=== PATIENT | female | born 1965 | race Caucasian/White ===

== ENCOUNTER 2017-01-20 08:07 | Emergency (ER) | payer OTHER ==
[2017-01-20 08:17] VITALS: BP 111/77
--- NOTE | 2017-01-20 08:28 | ED ---
Laceration/Wound HPI - History of Current Complaint Stated Complaint: FINGER LACERATION Time Seen by Provider: 01/20/17 08:24 Hx Obtained From: Patient Mechanism of Injury: Sharp/Blunt Trauma - cut R thumb on food mobile driver blade while washing dishes Onset/Duration: Sudden Onset - 45min ago. is having trouble making it stop bleeding Aggravating: Movement Alleviating: Compression Onset Severity: Moderate Current Severity: Moderate Pain Scale Used: 0-10 Numeric - 2 Associated Signs & Symptoms: Negative - Allergy/Home Medications Allergies/Adverse Reactions: Allergies Allergy/AdvReac Type Severity Reaction Status Date / Time Aspirin AdvReac Severe GI Upset Verified 01/20/17 08:17 Codeine AdvReac Severe GI Upset Verified 01/20/17 08:17 Erythromycin AdvReac Severe GI Upset Verified 01/20/17 08:17 Home Medications: Home Medications Atorvastatin* [Lipitor*] 20 mg PO 1700 01/20/17 [History Confirmed 01/20/17] Citalopram TAB* [CeleXA TAB*] 20 mg PO DAILY 01/20/17 [History Confirmed ] PMH/Surg Hx/FS Hx/Imm Hx Previously Healthy: Yes Endocrine/Hematology History: Denies: Hx Diabetes, Hx Thyroid Disease Cardiovascular History: Denies: Hx Hypertension Respiratory History: Denies: Hx Asthma, Hx Chronic Obstructive Pulmonary Disease (COPD) GI History: Denies: Hx Ulcer Psychiatric History: Denies: Hx Anxiety - Surgical History Surgery Procedure, Year, and Place: CHOLECYSTECTOMY, CARPAL TUNNEL, TUBAL LIGATION Infectious Disease History: No Infectious Disease History: Denies: Hx Hepatitis, Hx Human Immunodeficiency Virus (HIV), History Other Infectious Disease, Traveled Outside the [place] in Last 30 Days - Social History Alcohol Use: Rare Substance Use Type: Reports: None Smoking Status (MU): Never Smoked Tobacco Review of Systems Constitutional: Negative Cardiovascular: Negative Respiratory: Negative Musculoskeletal: Negative - no loss ROM Skin: Other - superficial cresent shaped lac R thumb Neurological: Negative Psychological: Normal All Other Systems Reviewed And Are Negative: Yes Physical Exam Triage Information Reviewed: Yes Vital Signs On Initial Exam: Initial Vitals Temp Pulse Resp BP Pulse Ox 98.3 F 75 16 111/77 97 01/20/17 08:12 01/20/17 08:12 01/20/17 08:12 01/20/17 08:12 01/20/17 08:12 Vital Signs Reviewed: Yes Appearance: Positive: Well-Appearing, No Pain Distress, Well-Nourished Skin: Positive: Warm, Skin Color Reflects Adequate Perfusion, Dry, Other - 7mm cresent shaped lac distal R thumb, no active bleeding Respiratory/Lung Sounds: Positive: Clear to Auscultation Cardiovascular: Positive: Normal Musculoskeletal: Positive: Normal, Strength/ROM Intact Neurological: Positive: Sensory/Motor Intact Psychiatric: Positive: Normal Procedures - Laceration/Wound Repair 1 Location: upper extremity - R thumb Description: Irregular - cresent shaped flap lac Length, Depth and Shape: 7mm long, 1mm wide, 1mm deep Betadine Prep?: No Irrigated w/ Saline (ccs): 10 Laceration/Wound Explored: clean Closure: Skin Adhesive, SteriStrips Sterile Dressing Applied?: Yes Diagnostics - Vital Signs Vital Signs Temp Pulse Resp BP Pulse Ox 01/20/17 08:12 98.3 F 75 16 111/77 97 - Laboratory Lab Statement: Any lab studies that have been ordered have been reviewed, and results considered in the medical decision making process. Laceration Repair Course/Dx - Differential Dx Differental Diagnoses: Abrasion, Avulsion, Laceration - Clinical Impression Provider Diagnoses: Laceration Discharge - Discharge Plan Condition: Good Disposition: HOME Patient Education Materials: Laceration Without Closure (ED), Skin Adhesive Care (ED) Referrals: Nidia Aragon MD [Primary Care Provider] - 2 Days (if needed for signs infection ) Additional Instructions: keep wound clean and dry. return for signs infection
== END 2017-01-20 09:08 | disposition home or self-care (01) ==
LOC: UCEAST 08:07
DX: S61.011A Laceration without foreign body of right thumb without damage to nail, initial encounter (principal); W27.8XXA Contact with other nonpowered hand tool, initial encounter; Y93.G1 Activity, food preparation and clean up; Y92.9 Unspecified place or not applicable; Z88.6 Allergy status to analgesic agent; Z88.1 Allergy status to other antibiotic agents; Z88.5 Allergy status to narcotic agent; Z90.49 Acquired absence of other specified parts of digestive tract
CPT/HCPCS: 12001; 99211; G0463

== ENCOUNTER 2019-01-28 07:21 | Day surgery (SDC) | payer OTHER ==
--- NOTE | 2019-01-24 08:56 | HP ---
HISTORY AND PHYSICAL: DATE OF SURGERY/ADMISSION: 01/28/19 - [facility] DATE OF OFFICE VISIT/ENCOUNTER: 12/29/18 ATTENDING SURGEON: Patsy Silva MD * (DICTATED BY ROBBIN WISEMAN) PROCEDURE: Left wrist carpal tunnel release. HISTORY OF PRESENT ILLNESS: This is a 53-year-old female who has had symptoms of carpal tunnel syndrome on the left, ongoing for several years. She has had physical therapy in the past and tried wrist bracing; however, neither of those alleviated her symptoms. She had a carpal tunnel release performed on the right and has done quite well for that. She now has consented to proceed with a left wrist carpal tunnel release. PAST MEDICAL HISTORY: 1. Seasonal allergies. 2. Depression/anxiety. 3. High cholesterol. 4. GERD. PAST SURGICAL HISTORY: 1. Tubal ligation. 2. Cholecystectomy. 3. Right carpal tunnel release. 4. [place] teeth extraction. CURRENT MEDICATIONS: 1. Celexa 20 mg daily. 2. Esomeprazole magnesium 20 mg daily. 3. Lipitor 20 mg daily. 4. Melatonin 3 mg two tabs daily. 5. Vitamin B12 TR 1000 mcg daily. 6. Xyzal Allergy 24 Hour 5 mg daily. ALLERGIES: No known drug allergies. FAMILY MEDICAL HISTORY: Heart disease, hypertension, cancer. 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 She denies tobacco use and recreational drug use. She drinks alcohol on rare occasion. REVIEW OF SYSTEMS: Negative for general, cephalic, cardiovascular, respiratory , GI, , other musculoskeletal, integumentary, endocrine, neurologic, and hematologic symptoms. Infectious Disease: Negative for MRSA, hepatitis C, HIV. PHYSICAL EXAMINATION GENERAL: Well-developed, well-nourished 53-year-old female, in no acute distress. VITAL SIGNS: Height 4 feet 8 inches, weight 144 pounds, pulse rate 68, blood pressure 114/68. HEENT: Normocephalic and atraumatic. Pupils are equal, round, and reactive to light and accommodation. Extraocular movements are intact. NECK: Supple. No palpable lymph nodes. Throat is clear. PULMONARY: Lungs are clear to auscultation bilaterally. No wheezes, rales, or rhonchi. CARDIOVASCULAR: Regular rate and rhythm. S1 and S2. No murmurs, rubs, or gallops. No edema. ABDOMEN: Positive bowel sounds. Soft and nontender. NEUROLOGIC: Alert and oriented x3. Cranial nerves II through XII are intact. Sensation is intact to light touch. MUSCULOSKELETAL: On exam of her left hand there is no thenar wasting, but she does have some weakness with thumb abduction. She has a positive Newton's test and a Tinel sign at carpal tunnel. She can make a full fist and has good extension of the fingers. Sensation is intact to light touch throughout the hands. IMPRESSION: Left carpal tunnel syndrome. PLAN/RECOMMENDATIONS: The patient is scheduled to undergo a left wrist carpal tunnel release with Dr. Silva on 01/28/19. She will return to the office 10 days postop for followup and suture removal. Prescription for Cummings was e- scribed to the patient's pharmacy for postoperative pain management. ROBBIN WISEMAN [id number]/[facility] #: [id number] MTDLidia
[~2019-01-28 07:21] MED LIST: Buffered Lidocaine 1% SYRIN* 1 ML/SYRINGE INTRADERM ONE; Lactated Ringers 1000 ML Bag* 1,000 ML IV SCH; Scopolamine 1.5 mg* PATCH TRANSDERM SCH
[2019-01-28] MEDS ORDERED: Scopolamine 1.5 mg* PATCH ONE (07:37)
[2019-01-28] MEDS ORDERED: Midazolam* 1 MG/ML 2 ML VIAL (2 MG) ONE (07:49)
[2019-01-28] MEDS ORDERED: fentaNYL* 50 MCG/ML 2 ML VIAL (100 MCG VIAL) ONE (07:49)
[2019-01-28] MEDS ORDERED: Lidocaine 1% INJ* 10 MG/ML 30 ML SDV ONE (08:02)
[2019-01-28] MEDS ORDERED: oxyCODONE/Acetamin 5/325 MG* TAB PO PRN (08:11)
[2019-01-28] MEDS ORDERED: fentaNYL* 50 MCG/ML 2 ML VIAL (100 MCG VIAL) IV PRN (08:11)
[2019-01-28] MEDS ORDERED: Ibuprofen TAB* 600 MG PO PRN (08:11)
[2019-01-28] MEDS ORDERED: Ondansetron INJ* 2 MG/ML VIAL IV PRN (08:11)
[2019-01-28] MEDS ORDERED: Naloxone* 0.4 MG/ML 1 ML VIAL IV PRN (08:11)
[2019-01-28] MEDS ORDERED: Acetaminophen TAB* 325 MG PO PRN (08:11)
[2019-01-28 09:29] VITALS: BP 112/67
--- NOTE | 2019-01-28 12:40 | OP ---
DATE OF OPERATION: 01/28/[address] [facility] DATE OF : 61 SURGEON: Patsy Silva MD SOLAR PROCESS ENGINEER: ROBBIN Koroma ANESTHESIA: Local MAC. PRE-OP DIAGNOSIS: Left carpal tunnel syndrome. POST-OP DIAGNOSIS: Left carpal tunnel syndrome. OPERATIVE PROCEDURE: Left carpal tunnel release. ESTIMATED BLOOD LOSS: Zero. TOURNIQUET TIME: Approximately 10 minutes. INDICATIONS FOR PROCEDURE: Hyacinth is a 53-year-old woman who has numbness and tingling in the median nerve distribution of her left hand. She presents for left carpal tunnel release. DESCRIPTION OF PROCEDURE: The patient was brought to the operating room, was given a sedation anesthetic and a local infiltration of 10 cc of 1% plain lidocaine in the palm of her left hand. The skin of her left hand and forearm was prepped and draped in usual sterile fashion. The hand and forearm were exsanguinated and the tourniquet elevated to 250 mmHg. A longitudinal incision was made in the palm in line with the ring finger. We dissected through the subcutaneous tissue down to the transverse carpal ligament. The ligament was divided sharply with a knife and then more proximally with the scissors. The nerve was dissected free from the surrounding tissue and there was an area of moderate compression at the mid portion of the ligament. The wound was irrigated and the skin edges reapproximated with 4- 0 nylon suture. The wound was dressed with Xeroform, 4x4, Webril, and an Adolph wrap. The patient tolerated the procedure well and was brought to the recovery room in good condition. [id number]/[facility] #: [id number] M[facility] IMOGENE BASSETT HOSPITALLidia
== END 2019-01-28 09:44 | disposition home or self-care (01) ==
LOC: OREAST 07:21
PROVIDERS: ATTEND Orthopaedic Surgery
DX: G56.02 Carpal tunnel syndrome, left upper limb (principal); E78.5 Hyperlipidemia, unspecified; K21.9 Gastro-esophageal reflux disease without esophagitis; M19.90 Unspecified osteoarthritis, unspecified site; F41.8 Other specified anxiety disorders; E78.00 Pure hypercholesterolemia, unspecified; J30.2 Other seasonal allergic rhinitis
CPT/HCPCS: A9270-GY; J2250; J3010